=== PATIENT | male | born 1930 | race Caucasian/White ===

== ENCOUNTER 2018-09-29 15:07 | Observation (INO) | payer OTHER, MEDICARE ==
[2018-09-29] MEDS ORDERED: ALBUTEROL 2.5 MG/3 ML NEB SOL IH PRN (15:35)
[2018-09-29] MEDS ORDERED: INFLUENZA VACCINE (for 3y+) 0.5 ML DOSE IMVAC ONE (16:00)
[2018-09-29] MEDS ORDERED: NACHLORIDE 0.45% 1,000 ML IV SCH (16:00)
[2018-09-29] MEDS ORDERED: ENOXAPARIN 40 MG/0.4 ML SQ SCH (16:00)
[2018-09-29] MEDS ORDERED: ONDANSETRON 4 MG (ODT) TAB PO PRN (16:00)
[2018-09-29] MEDS ORDERED: PNEUMOCOCCAL VACCINE 0.5 ML IMVAC ONE (16:00)
[2018-09-29] MEDS ORDERED: ACETAMINOPHEN 325 MG TABLET PO PRN (16:00)
[2018-09-29] MEDS ORDERED: ONDANSETRON 4 MG/2 ML VIAL IV PRN (16:00)
[2018-09-29] MEDS ORDERED: LOPERAMIDE HCL 2 MG CAPSULE PO PRN (16:00)
[2018-09-29] MEDS ORDERED: DIPHENHYDRAMINE 25 MG TAB/CAP PO PRN (16:00)
[2018-09-29] MEDS ORDERED: POLYETHYL GLY 3350 17 GM/DOSE PO PRN (16:00)
[2018-09-29 16:08] VITALS: BMI 28.9
[2018-09-29 16:55] LABS: Arterial Blood Carboxyhemoglob 0.2 % (0-1.5); Blood Gas Oxyhemoglobin 91.6 % (94-97); Blood O2 Saturation 92.3 % (92-98.5)
--- NOTE | 2018-09-29 17:09 | EKG ---
Test Date: 2018-09-29 Test Time: 16:32:40 Carton Wrapper: RONY MEASUREMENT RESULTS: Intervals: Rate: 66 ME: 216 QRSD: 162 QT: 434 QTc: 454 [place]: P: 70 ME: 216 QRS: 95 T: 40 INTERPRETIVE STATEMENTS: Sinus rhythm with 1st degree AV block Right bundle branch block Abnormal ECG Compared to ECG 01/02/2017 08:24:06 Sinus tachycardia no longer present Electronically Signed On 09-29-18 17:08:48 BUILDING MAINTENANCE CUSTODIAN by Jun Rendon
[2018-09-29 17:17] LABS: Absolute Lymphocytes (CBC) 1.3 K/uL (0.7-4.9); Absolute Monocytes 0.5 K/uL (0.1-1.3); Absolute Neutrophil 3.9 K/uL (1.8-8.0); Basophils % 0.8 % (0-1.3); Eosinophils % 4.8 % (0-4.4); Hematocrit 39.9 % (39.6-49.0); MPV 8.5 fL (7.6-11.3); Monocytes % 8.6 % (3.3-12.3); RBC Red Blood Cell Count 4.14 M/uL (4.33-5.43)
[2018-09-29 17:20] LABS: Protime INR 0.96
[2018-09-29 17:59] LABS: Albumin 3.3 g/dL (3.4-5.0); Bilirubin Direct 0.1 mg/dL (0-0.2); Bilirubin Total 0.4 mg/dL (0.2-1.0); Magnesium 1.7 mg/dL (1.8-2.4); Phosphorus 2.7 mg/dL (2.5-4.9); Potassium 4.8 mmol/L (3.5-5.1); Protein, Total 6.8 g/dL (6.4-8.2); Thyroid Stimulating Hormone 1.48 uIU/mL (0.360-3.740)
--- NOTE | 2018-09-29 19:30 | RAD REPORT ---
EXAM DESCRIPTION: CT - Thorax Wo Con - 09/29/2018 7:10 pm CLINICAL HISTORY: sob COMPARISON: 2016 TECHNIQUE: Computed axial tomography of the chest was obtained. Contrast was not requested. All CT scans are performed using dose optimization technique as appropriate and may include automated exposure control or mA/KV adjustment according to patient size. FINDINGS: The evaluation of mediastinum, raad and vessels is limited secondary to lack of IV contras t administration. A calcified granuloma is present within the right lung. Left lung is essentially clear Calcified mediastinal and calcified hilar lymph nodes are present. . A pleural effusion is not present. A pericardial effusion is not seen. Coronary arterial calcificatio ns are noted. IMPRESSION: No acute abnormality displayed
--- NOTE | 2018-09-29 19:56 | RAD REPORT ---
EXAM DESCRIPTION: MRI - Brain Wo Cont - 09/29/2018 7:46 pm CLINICAL HISTORY: Anomia/ataxia COMPARISON: 2014 TECHNIQUE: Axial, sagittal, and coronal magnetic images of the brain were obtained. Contrast was not requested FINDINGS: Mild signal within periventricular, deep and subcortical white matter likely represent isc hemic changes secondary to small vessel disease. Diffusion-weighted/ADC mapping does not reveal evidence of acute infarction. The ventricles are normal caliber. An extra-axial fluid collection is not present Mild chronic opacification of mastoids is seen. Mild chronic sinusitis IMPRESSION: No acute abnormality displayed
--- NOTE | 2018-09-29 20:19 | RAD REPORT ---
EXAM DESCRIPTION: Deshawn Mcclelland (2 Views)09/29/2018 8:11 pm CLINICAL HISTORY: sob COMPARISON: July 2018 FINDINGS: The lungs appear clear of acute infiltrate. The heart is normal size IMPRESSION: No acute abnormalities displayed
[2018-09-29] MEDS: IPRATROPIUM BROM 0.5MG/2.5ML IH SCH (20:40)
[2018-09-29] MEDS: ALBUTEROL 2.5 MG/3 ML NEB SOL IH SCH (20:40)
[2018-09-29] MEDS ORDERED: FAMOTIDINE 20 MG TAB PO SCH (22:00)
[2018-09-30] MEDS: ALBUTEROL 2.5 MG/3 ML NEB SOL IH SCH ×3 (01:17→14:07)
[2018-09-30] MEDS: IPRATROPIUM BROM 0.5MG/2.5ML IH SCH ×3 (01:17→14:07)
[2018-09-30 06:16] LABS: Absolute Lymphocytes (CBC) 1.2 K/uL (0.7-4.9); Absolute Monocytes 0.4 K/uL (0.1-1.3); Absolute Neutrophil 2.5 K/uL (1.8-8.0); Basophils % 1.1 % (0-1.3); Eosinophils % 6.8 % (0-4.4); Hematocrit 39.3 % (39.6-49.0); Lymphocytes % 26.2 % (15.3-44.8); Monocytes % 9.8 % (3.3-12.3); RBC Red Blood Cell Count 4.19 M/uL (4.33-5.43)
[2018-09-30 06:37] LABS: Magnesium 1.7 mg/dL (1.8-2.4); Potassium 4.2 mmol/L (3.5-5.1)
[2018-09-30] MEDS: INSULIN 70/30 100 UNITS/ML SQ SCH ×2 (08:18→16:30)
[2018-09-30] MEDS ORDERED: DULOXETINE 20 MG CAP PO SCH (09:00)
[2018-09-30] MEDS ORDERED: LOSARTAN POTASSIUM 50 MG TABLET PO SCH (09:00)
[2018-09-30] MEDS ORDERED: METOPROLOL TAR 25 MG TAB PO SCH (09:00)
[2018-09-30] MEDS ORDERED: AMLODIPINE 10 MG TAB PO SCH (09:00)
[2018-09-30] MEDS ORDERED: ENOXAPARIN 30 MG/0.3 ML SQ SCH (09:00)
[2018-09-30] MEDS: FUROSEMIDE 20 MG/ 2ML VIAL IV SCH ×2 (09:49→17:53)
[2018-09-30] MEDS ORDERED: D50W 25 GM/50 ML SYRINGE IV PRN (12:26)
[2018-09-30] MEDS ORDERED: GLUCAGON 1 MG/VIAL IM PRN (12:26)
[2018-09-30] MEDS: INSULIN -REGULAR HUMAN 50 UNIT/0.5 ML ML SQ SCH ×2 (12:46→16:30)
--- NOTE | 2018-09-30 13:36 | ECHO ---
HEIGHT: 5 ft 5 in WEIGHT: 174 lb 0 oz DATE OF STUDY: 09/30/[address]: Armond Sommers MD 2-DIMENSIONAL: YES M.MODE: YES DOPPLER: YES COLOR FLOW: YES TDS: NO PORTABLE: NO DEFINITY: NO BUBBLE STUDY: NO DIAGNOSIS: SYNCOPE CARDIAC HISTORY: CATHERIZATION: NO SURGERY: NO PROSTHETIC VALVE: NO PACEMAKER: NO MEASUREMENTS (cm) DIASTOLIC (NORMALS) SYSTOLIC (NORMALS) IVSd 1.0 (0.6-1.2) LA Diam 3.3 (1.9-4.0) LVEF 53% LVIDd 4.7 (3.5-5.7) LVIDs 3.4 (2.0-3.5) %FS 27% LVPWd 0.9 (0.6-1.2) Ao Diam 2.6 (2.0-3.7) 2 DIMENSIONAL ASSESSMENT: RIGHT ATRIUM: NORMAL LEFT ATRIUM: NORMAL RIGHT VENTRICLE: NORMAL LEFT VENTRICLE: NORMAL TRICUSPID VALVE: NORMAL MITRAL VALVE: MITRAL ANNULAR CALCIFICATION PULMONIC VALVE: NORMAL AORTIC VALVE: NORMAL PERICARDIAL EFFUSION: NONE AORTIC ROOT: NORMAL LEFT VENTRICULAR WALL MOTION: NORMAL. DOPPLER/COLOR FLOW: IMPAIRED LEFT VENTRICUALR RELAXATION. MILD MITRAL AND TRICUSPID REGURGITATION. NORMAL RIGHT VENTRICULAR SYSTOLIC PRESSURE. COMMENTS: NORMAL LEFT VENTRICUALR EJECTION FRACTION. MITRAL ANNULAR CALCIFICATION. IMPAIRED LEFT VENTRICULAR RELAXATION. MILD MITRAL AND TRICUSPID REGURGITATION. TECHNOLOGIST: DIANE FLAHERTY
[2018-09-30 17:11] VITALS: O2SAT 98
[2018-09-30 17:23] VITALS: TEMP 97.9
[2018-09-30 17:56] VITALS: BP 120/80
--- NOTE | 2018-09-30 20:16 | P.DS ---
Admission Date: 09/29/18 Discharge Date: 09/30/18 Disposition: ROUTINE DISCHARGE Discharge Condition: FAIR - Problems (1) Dyspnea Status: Acute Qualifiers: Dyspnea type: shortness of breath Qualified Code(s): R06.02 - Shortness of breath; R06.00 - Dyspnea, unspecified; R06.01 - Orthopnea (2) Anomia Status: Acute Hospital Course: MR. GORDON HAS DYSPNEA AT REST, HE HAS DIFFICULT TIME GETTING WORDS OUT. HE STUMBLE ALSO. HE IS A DECONDITIONED GM WITH MANY MEDICAL ISSUES, DM, HTN, CKD -3, NEUROPATHY, OBESITY, CAD, BLADDER CANCER HISTORY AND ON MRI HE SHOWS NO SIGNS OF STROKE. CT SCAN OF CHEST IS NEGATIVE. HIS ANOMIA CAN BE RELATED TO ATYPICAL SEIZURES. I ORDERED EEG. REPORT AND NEUROLOGISTS ARE NOT AVAILABLE AT THIS [facility]. HE IS STABLE TO BE DISCHARGED HOME. Vital Signs/Physical Exam: Temp Pulse Resp BP Pulse Ox 97.9 F 68 17 120/80 98 09/30/18 16:00 09/30/18 17:53 09/30/18 16:00 09/30/18 17:53 09/30/18 16:00 General: Alert, In no apparent distress, Obese HEENT: Atraumatic, PERRLA, EOMI Neck: Supple, JVD not distended Respiratory: Clear to auscultation bilaterally, Normal air movement Cardiovascular: Regular rate/rhythm, Normal S1 S2 Gastrointestinal: Normal bowel sounds, No tenderness Musculoskeletal: No tenderness Integumentary: No rashes Neurological: Normal speech, Normal tone, Normal affect Lymphatics: No axilla or inguinal lymphadenopathy Laboratory Data at Discharge: WBC 4.5 K/uL (4.3-10.9) D 09/30/18 05:50 Hgb 13.2 g/dL (13.6-17.9) L 09/30/18 05:50 Hct 39.3 % (39.6-49.0) L 09/30/18 05:50 Plt Count 217 K/uL (152-406) 09/30/18 05:50 PT 11.3 SECONDS (9.5-12.5) 09/29/18 16:52 INR 0.96 09/29/18 16:52 APTT 27.3 SECONDS (24.3-36.9) 09/29/18 16:52 Sodium 138 mmol/L (136-145) 09/30/18 05:50 Potassium 4.2 mmol/L (3.5-5.1) 09/30/18 05:50 BUN 44 mg/dL (7-18) H 09/30/18 05:50 Creatinine 1.73 mg/dL (0.55-1.3) H 09/30/18 05:50 Glucose 216 mg/dL (74-106) H 09/30/18 05:50 Phosphorus 2.7 mg/dL (2.5-4.9) 09/29/18 16:52 Magnesium 1.7 mg/dL (1.8-2.4) L 09/30/18 05:50 Total Bilirubin 0.4 mg/dL (0.2-1.0) 09/29/18 16:52 AST 23 U/L (15-37) 09/29/18 16:52 ALT 27 U/L (12-78) 09/29/18 16:52 Alkaline Phosphatase 84 U/L (45-117) 09/29/18 16:52 Troponin I < 0.02 ng/mL (0.0-0.045) 09/30/18 15:17 Home Medications: Alpha Lipoic Acid 600 mg PO DAILY 09/29/18 Amlodipine [Norvasc*] 10 mg PO DAILY 09/29/18 Aspirin [Aspirin EC 81 MG] 81 mg PO BEDTIME 09/29/18 Cholecalciferol (Vitamin D3) [Vitamin D3] 1,000 iu PO BID 09/29/18 Famotidine [Pepcid*] 20 mg PO BID 09/29/18 Gabapentin [Neurontin*] 100 mg PO BEDTIME 09/29/18 Insulin 70/30 NPH/Reg Human [Novolin 70/30*] 20 units SQ BID 09/29/18 Losartan Potassium [Cozaar*] 50 mg PO DAILY 09/29/18 Metoprolol Tartrate [Lopressor*] 12.5 mg PO DAILY 09/29/18 Furosemide 40 mg PO DAILY #90 tablet 09/30/18 New Medications: Furosemide 40 mg PO DAILY #90 tablet Followup: Armond Sommers MD [Primary Care Provider] - 10/08/18 (Follow up before 12:00)
[2018-09-30] MEDS ORDERED: GABAPENTIN 100 MG CAP PO SCH (21:00)
[2018-09-30] MEDS ORDERED: ASPIRIN EC 81 MG TAB PO SCH (21:00)
[2018-10-01] MEDS ORDERED: LOSARTAN 50 MG TABLET PO SCH (09:00)
[2018-10-01] MEDS ORDERED: METOPROLOL SUCC 50 MG PO SCH (09:00)
[2018-10-01] MEDS ORDERED: AMLODIPINE 10 MG TABLET PO SCH (09:00)
[2018-10-03 15:40] LABS: Vitamin D 1,25-Dihydroxy Total 26 pg/mL (18-72); Vitamin D,1,25-OH2, D2 <8 pg/mL
== END 2018-09-30 18:45 | disposition home or self-care (01) ==
LOC: 2ND 15:14
PROVIDERS: ADMIT Internal Medicine; ATTEND Internal Medicine
DX: R06.00 Dyspnea, unspecified (principal); R48.8 Other symbolic dysfunctions; I12.9 Hypertensive chronic kidney disease with stage 1 through stage 4 chronic kidney disease, or unspecified chronic kidney disease; E11.22 Type 2 diabetes mellitus with diabetic chronic kidney disease; N18.3 Chronic kidney disease, stage 3 (moderate); I25.10 Atherosclerotic heart disease of native coronary artery without angina pectoris; E66.9 Obesity, unspecified; Z68.29 Body mass index [BMI] 29.0-29.9, adult; Z85.51 Personal history of malignant neoplasm of bladder
CPT/HCPCS: 36415 ×2; 70551; 71046; 71250; 80048 ×2; 80076; 82607; 82652; 82805; 82962 ×6; 83735 ×2; 83880; 84100; 84238; 84403; 84443; 84484 ×2; 85025 ×2; 85379; 85610; 85730; 87040; 93005; 93306; 94640; 94760 ×4; 95819; G0378 ×2; J1650 ×2; J1940 ×2

== ENCOUNTER 2018-10-25 10:17 | Observation (INO) | payer OTHER, MEDICARE ==
--- OUTSIDE RECORDS SUMMARY | 2018-10-25 10:49 | XMS REPORT | Clinical Summary ---
:1930 Author Organization [facility] Address [address] [place] [address] Care Team Providers Name Role Phone System, Provider Not In MD Primary Care Provider Unavailable Allergies Active Allergy Reactions Severity Noted Date Comments Hydrocodone Medications Medication Sig Dispensed Refills Start Date End Date Status losartan (COZAAR) 100 Take 50 mg by 0 Active MG tablet mouth daily. DULoxetine (CYMBALTA) Take 60 mg by 0 Active 60 MG capsule mouth daily. cholecalciferol, Take 1,000 0 Active vitamin D3, (VITAMIN Units by mouth D3) 1,000 unit tablet daily. METOPROLOL TARTRATE Take 12.5 mg by 0 Active 12.5 MG PO SPLIT mouth every TABLET (LOPRESSOR) evening. omeprazole (PriLOSEC) Take 20 mg by 0 Active 20 MG capsule mouth daily. amLODIPine (NORVASC) Take 10 mg by 0 Active 10 mg tablet mouth daily. FOLIC Take by mouth. 0 Active ACID/MULTIVIT-MIN/LUTE IN (CENTRUM SILVER ORAL) linaclotide (LINZESS) Take 290 mcg by 0 Active 290 mcg capsule mouth 2 (two) times a week. Twice a week aspirin (ECOTRIN) 81 Take 81 mg by 0 Active MG enteric coated mouth daily. tablet gabapentin (NEURONTIN) Take 100 mg by 0 Active 100 mg capsule mouth 2 (two) times a day. INSULIN NPH HUM/REG Inject 20 Units 0 Active INSULIN HM (NOVOLIN under the skin 70/30 SUBQ) 2 (two) times a day. FOLIC Take by mouth. 0 Active ACID/MULTIVIT-MIN/LUTE IN (CENTRUM SILVER ORAL) TURMERIC (CURCUMIN 1,000 mg every 0 Active MISC) evening. rosuvastatin (CRESTOR) Take 1 tablet 90 tablet 3 08/20/2017 08/20/2018 20 MG tablet (20 mg total) by mouth daily. Active Problems Problem Noted Date Abnormal nuclear stress test 08/13/2017 Overview: Added automatically from request for surgery [id number] Atrial fibrillation 10/08/2016 Dizziness 10/08/2016 Dyspnea on exertion 10/08/2016 Abnormal electrocardiography 10/08/2016 Essential hypertension 10/08/2016 Hyperlipidemia 10/08/2016 Premature atrial contraction 10/08/2016 Primary malignant neoplasm of bladder 10/08/2016 Right fascicular block 10/08/2016 Atrial premature complexes 10/08/2016 Social History Tobacco Use Types Packs/Day Years Used Date Former Smoker Smokeless Tobacco: Never Used Alcohol Use Drinks/Week oz/Week Comments Yes Sex Assigned at Date Recorded Not on file Job Start Date Occupation Industry Not on file Not on file Not on file Travel History Travel Start Travel End No recent travel history available. Last Filed Vital Signs Not on file Plan of Treatment Health Maintenance Due Date Last Done Comments SHINGLES VACCINES (#1) 1979 65+ PNEUMOCOCCAL VACCINE (1 of 2 - PCV13) 1994 PNEUMOCOCCAL POLYSACCHARIDE VACCINE AGE 65 AND OVER 1994 INFLUENZA VACCINE 03/24/2018 Results Not on fileafter 10/24/2017 Insurance Payer Benefit Plan / Group Subscriber ID Type Phone Address MEDICARE MEDICARE PART A AND B xxxxxxxxxx Medicare [place], [place] AARP AARP SUPPLEMENT xxxxxxxxx-xx Commercial Advance Directives Patient has advance care planning documents on file. For more information, please contact:[place] [address]
[2018-10-25] MEDS ORDERED: ACETAMINOPHEN 325 MG TABLET PO PRN (12:00)
[2018-10-25] MEDS ORDERED: LOPERAMIDE HCL 2 MG CAPSULE PO PRN (12:00)
[2018-10-25] MEDS ORDERED: ONDANSETRON 4 MG/2 ML VIAL IV PRN (12:00)
[2018-10-25] MEDS ORDERED: DIPHENHYDRAMINE 25 MG TAB/CAP PO PRN (12:00)
[2018-10-25] MEDS ORDERED: POLYETHYL GLY 3350 17 GM/DOSE PO PRN (12:00)
[2018-10-25] MEDS ORDERED: NACHLORIDE 0.45% 1,000 ML IV SCH (12:00)
[2018-10-25] MEDS ORDERED: ONDANSETRON 4 MG (ODT) TAB PO PRN (12:00)
[2018-10-25 12:13] LABS: Absolute Lymphocytes (CBC) 1.2 K/uL (0.7-4.9); Absolute Monocytes 0.5 K/uL (0.1-1.3); Absolute Neutrophil 2.9 K/uL (1.8-8.0); Basophils % 0.9 % (0-1.3); Eosinophils % 10.7 % (0-4.4); Hematocrit 38.5 % (39.6-49.0); Lymphocytes % 23.6 % (15.3-44.8); MPV 8.1 fL (7.6-11.3); RBC Red Blood Cell Count 4.03 M/uL (4.33-5.43)
[2018-10-25 12:33] VITALS: BMI 28.6
[2018-10-25] MEDS ORDERED: ALBUTEROL INHALER 60 PUFF/8 GM IH PRN (12:47)
[2018-10-25 12:49] LABS: Protime INR 0.99
--- NOTE | 2018-10-25 13:07 | RAD REPORT ---
EXAM DESCRIPTION: Deshawn Mcclelland (2 Views)10/25/2018 1:01 pm CLINICAL HISTORY: Cough COMPARISON: September 29, 2018 FINDINGS: The lungs appear clear of acute infiltrate. The heart is normal size IMPRESSION: No acute abnormalities displayed
--- NOTE | 2018-10-25 13:42 | EKG ---
Test Date: 2018-10-25 Test Time: 11:36:21 Hose Tester: SINA MEASUREMENT RESULTS: Intervals: Rate: 75 SD: 252 QRSD: 162 QT: 434 QTc: 484 [place]: P: SD: 252 QRS: 49 T: 5 INTERPRETIVE STATEMENTS: Sinus rhythm with 1st degree AV block Right bundle branch block Inferior infarct, age undetermined Abnormal ECG Compared to ECG 09/29/2018 16:32:40 Myocardial infarct finding now present Electronically Signed On 10-25-18 13:37:46 CRAB FISHERMAN by Jun Rendon
[2018-10-25 13:54] LABS: ALT/SGPT 38 U/L (12-78); AST/SGOT 35 U/L (15-37); Albumin 3.5 g/dL (3.4-5.0); Alkaline Phosphatase 88 U/L (45-117); BUN Blood Urea Nitrogen 63 mg/dL (7-18); Bicarbonate 23 mmol/L (21-32); Bilirubin Direct < 0.1 mg/dL (0-0.2); Bilirubin Total 0.4 mg/dL (0.2-1.0); Glucose Level 139 mg/dL (74-106); Magnesium 1.9 mg/dL (1.8-2.4); Phosphorus 3.2 mg/dL (2.5-4.9); Potassium 4.4 mmol/L (3.5-5.1); Protein, Total 7.4 g/dL (6.4-8.2); Sodium Level 139 mmol/L (136-145)
--- NOTE | 2018-10-25 15:53 | RAD REPORT ---
EXAM DESCRIPTION: CT - Abdomen Pelvis Wo Contrast - 10/25/2018 3:16 pm CLINICAL HISTORY: Abdominal pain. AMS, unsteady gait COMPARISON: Abdomen Pelvis Wo Contrast dated 01/01/2017; Abdomen Pelvis Wo Contrast dated 04/07/20 16 TECHNIQUE: CT imaging of the abdomen and pelvis was performed without contrast. Solid organ, bowel a nd vascular assessment is limited due to lack of IV and oral contrast. All CT scans are performed using dose optimization technique as appropriate and may include automated exposure control or mA/KV adjustment according to patient size. FINDINGS: The lower lung blanchard are clear. The liver, spleen, pancreas, adrenal glands and kidneys are within normal limits for a limited non-co ntrast examination.Bilateral renal cysts are present. No bowel obstruction, free air, free fluid or abscess. 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 Small parastomal hernia is present containing fat and small bowel without obstruction. Diverticulosis is present involving the sigmoid colon with trace peridiverticular fat stranding in th e anterior left lower quadrant likely representing mild acute diverticulitis. The osseous structures are within normal limits. IMPRESSION: Mild acute left lower quadrant diverticulitis without abscess. A limited non-contrast examination was performed as detailed.
--- NOTE | 2018-10-25 16:18 | RAD REPORT ---
EXAM DESCRIPTION: MRI - Brain Wo Cont - 10/25/2018 3:57 pm CLINICAL HISTORY: AMS, unsteady gait Drowsiness, headache COMPARISON: Brain Wo Cont dated 09/29/2018; MRA HEAD W O CONTRAST dated 02/17/2015; MRI BRAIN WITHOUT C ONTRAST dated 08/10/2013 TECHNIQUE: Multi-sequence, multiplanar MR imaging of the brain was performed without contrast. FINDINGS: No intracranial hemorrhage, hydrocephalus or extra-axial fluid collections.Mild to moderat e generalized brain atrophy is present. Moderate T2 and FLAIR hyperintensity is seen in the periventr icular and deep white matter likely representing chronic microvascular ischemic changes. No edema or shift of midline structures. No findings to suspect brain mass. DWI is negative for acute CVA. Midline structures are normally formed. Mild mucosal thickening in both maxillary antra seen. Trace fluid is seen in both mastoid air cells. IMPRESSION: No significant change is seen since the comparative study. Negative for acute CVA or other acute intracranial process. Mild paranasal sinus and mastoid fluid.
[2018-10-25] MEDS: METRONIDAZOLE 500mg IVPB 500 MG/100 ML BAG IV SCH (17:51)
[2018-10-25] MEDS: METOPROLOL TAR 25 MG TAB PO SCH ×2 (17:54→21:11)
[2018-10-25] MEDS: INSULIN 70/30 100 UNITS/ML SQ SCH (17:54)
[2018-10-25] MEDS ORDERED: FAMOTIDINE 20 MG TAB PO SCH (18:00)
[2018-10-25] MEDS ORDERED: ASPIRIN 81 MG CHEWABLE TABLET PO SCH (18:00)
[2018-10-25] MEDS ORDERED: VITAMIN D 1000 UNIT TAB PO SCH (18:00)
[2018-10-25] MEDS ORDERED: GABAPENTIN 100 MG CAP PO SCH (18:00)
[2018-10-25] MEDS ORDERED: GLUCAGON 1 MG/VIAL IM PRN (20:28)
[2018-10-25] MEDS ORDERED: D50W 25 GM/50 ML SYRINGE IV PRN (20:28)
[2018-10-25] MEDS: Ciprofloxacin 200mg IV 200 MG/100 ML IV.SOLN. IV SCH (20:49)
[2018-10-25] MEDS: INSULIN -REGULAR HUMAN 50 UNIT/0.5 ML ML SQ SCH (21:00)
--- NOTE | 2018-10-25 21:01 | RAD REPORT ---
EXAM DESCRIPTION: RAD - Shoulder Right 2 View - 10/25/2018 8:54 pm CLINICAL HISTORY: right upper arm pain History of fall, shoulder pain COMPARISON: Shoulder Right 2 View dated 09/29/2017 FINDINGS: Glenohumeral and AC joint arthritic changes are present. No acute fracture or dislocation is identified.
[2018-10-26] MEDS: METRONIDAZOLE 500mg IVPB 500 MG/100 ML BAG IV SCH ×2 (00:52→06:39)
[2018-10-26] MEDS ORDERED: ALPHA LIPOIC ACID 600 MG PO SCH (06:00)
[2018-10-26] MEDS ORDERED: [UNRECOGNIZED DRUG - OTHER] PO SCH (06:00)
[2018-10-26] MEDS ORDERED: LASIX 40 MG PO SCH (06:00)
[2018-10-26] MEDS ORDERED: FLAX PO SCH (06:00)
[2018-10-26] MEDS ORDERED: FISH OIL PO SCH (06:00)
[2018-10-26] MEDS ORDERED: HOME MED 1 EA UNK (Linaclotide [Linzess] 290 MCG) PO SCH (06:00)
[2018-10-26] MEDS ORDERED: BORAGE PO SCH (06:00)
[2018-10-26] MEDS ORDERED: VITAMIN B COMPLEX 1 CAP PO SCH (06:00)
[2018-10-26] MEDS ORDERED: FUROSEMIDE 40 MG TABLET PO SCH (06:00)
[2018-10-26] MEDS: INSULIN 70/30 100 UNITS/ML SQ SCH (06:00)
[2018-10-26 06:10] LABS: Absolute Monocytes 0.4 K/uL (0.1-1.3); Basophils % 0.8 % (0-1.3); Eosinophils % 6.4 % (0-4.4); Lymphocytes % 14.7 % (15.3-44.8); MPV 8.2 fL (7.6-11.3); Monocytes % 6.1 % (3.3-12.3); RBC Red Blood Cell Count 4.03 M/uL (4.33-5.43)
[2018-10-26 06:31] LABS: Potassium 3.8 mmol/L (3.5-5.1)
[2018-10-26] MEDS: INSULIN -REGULAR HUMAN 50 UNIT/0.5 ML ML SQ SCH (07:30)
[2018-10-26] MEDS: Ciprofloxacin 200mg IV 200 MG/100 ML IV.SOLN. IV SCH (07:53)
[2018-10-26 08:15] LABS: Urine Appearance CLOUDY; Urine Bilirubin NEGATIVE (NEG); Urine Blood TRACE (NEG); Urine Color YELLOW; Urine Glucose NEGATIVE (NEG); Urine Protein 1+ (NEG); Urine Urobilinogen 0.2 mg/dL (0.2-1.0); Urine pH 7.5 (5.0-7.0)
[2018-10-26 08:19] LABS: Urine Microscopic Reflex ORDER UMIC
[2018-10-26 08:28] LABS: Urine Bacteria 20-50 /HPF (NONE SEEN); Urine RBC <5 /HPF (NONE SEEN)
[2018-10-26 08:29] LABS: Urine Amorphous Sediment 1+ /HPF (NONE SEEN); Urine Culture Reflex Order REFLEXED
[2018-10-26] MEDS ORDERED: ENOXAPARIN 40 MG/0.4 ML SQ SCH (09:00)
[2018-10-26] MEDS ORDERED: NORVASC 10 MG PO SCH (09:00)
[2018-10-26] MEDS ORDERED: AMLODIPINE 10 MG TAB PO SCH (09:00)
[2018-10-26] MEDS ORDERED: COZAAR 50 MG PO SCH (09:00)
[2018-10-26] MEDS ORDERED: LOSARTAN POTASSIUM 50 MG TABLET PO SCH (09:00)
[2018-10-26 09:24] LABS: UR MICROALBUMIN 11.7 mg/dL (< 1.9)
[2018-10-26 09:25] VITALS: BP 111/70; TEMP 97.9
[2018-10-26 09:51] VITALS: O2SAT 99
--- NOTE | 2018-10-26 09:58 | P.DS ---
Admission Date: 10/25/18 Discharge Date: 10/26/18 Disposition: ROUTINE DISCHARGE Discharge Condition: FAIR Hospital Course: MR. GORDON IS FEELING A LOT BETTER WITH TWO ABX GIVEN FOR DIVERTICULITIS. HE IS ABLE TO AMBULATE. HE IS STABLE FOR DISCHARGE FOR FU IN OFFICE. Vital Signs/Physical Exam: Temp Pulse Resp BP Pulse Ox 97.9 F 84 19 111/70 99 10/26/18 08:00 10/26/18 08:00 10/26/18 08:00 10/26/18 08:00 10/26/18 08:00 Laboratory Data at Discharge: WBC 6.9 K/uL (4.3-10.9) D 10/26/18 05:35 Hgb 12.7 g/dL (13.6-17.9) L 10/26/18 05:35 Hct 38.0 % (39.6-49.0) L 10/26/18 05:35 Plt Count 239 K/uL (152-406) 10/26/18 05:35 PT 11.7 SECONDS (9.5-12.5) 10/25/18 11:54 INR 0.99 10/25/18 11:54 APTT 27.5 SECONDS (24.3-36.9) 10/25/18 11:54 Sodium 144 mmol/L (136-145) 10/26/18 05:35 Potassium 3.8 mmol/L (3.5-5.1) 10/26/18 05:35 BUN 62 mg/dL (7-18) H 10/26/18 05:35 Creatinine 2.11 mg/dL (0.55-1.3) H 10/26/18 05:35 Glucose 108 mg/dL (74-106) H 10/26/18 05:35 Phosphorus 3.2 mg/dL (2.5-4.9) 10/25/18 11:54 Magnesium 2.0 mg/dL (1.8-2.4) 10/26/18 05:35 Total Bilirubin 0.4 mg/dL (0.2-1.0) 10/25/18 11:54 AST 35 U/L (15-37) 10/25/18 11:54 ALT 38 U/L (12-78) 10/25/18 11:54 Alkaline Phosphatase 88 U/L (45-117) 10/25/18 11:54 Home Medications: Albuterol Inhaler [Ventolin Inhaler*] 2 puff IH Q6H PRN 10/25/18 Alpha Lipoic Acid 600 mg PO [id number] 10/25/18 Amlodipine [Norvasc*] 10 mg PO DAILY 10/25/18 Aspirin [Jorge Chewable Aspirin] 81 mg PO DAILY 6PM 10/25/18 Cholecalciferol (Vitamin D3) [Vitamin D3] 2,000 unit PO DAILY 6PM 10/25/18 Famotidine [Pepcid] 20 mg PO BID 6AM 6PM 10/25/18 Fish Oil/Borage/Flax/Om3,6,9#1 [[place] 3-6-9 1,200 mg Softgel] 1 cap PO [id number] 10/25/18 Furosemide 40 mg PO [id number] 10/25/18 Gabapentin 100 mg PO DAILY 6PM 10/25/18 Insulin NPH Hum/Reg Insulin Hm [Novolin 70-30 Flexpen] 20 unit SQ BID 6AM 6PM Linaclotide [Linzess] 290 mcg PO [id number] 10/25/18 Losartan Potassium [Cozaar*] 50 mg PO DAILY 10/25/18 Metoprolol Tartrate [Lopressor*] 12.5 mg PO DAILY 6PM 10/25/18 Vitamin B Complex [B Complex] 1 each PO [id number] 10/25/18 Ciprofloxacin HCl [Cipro 250 MG Tablet*] 250 mg PO BID #20 tab 10/26/18 metroNIDAZOLE [Flagyl] 250 mg PO Q8H #21 tablet 10/26/18 New Medications: Ciprofloxacin HCl [Cipro 250 MG Tablet*] 250 mg PO BID #20 tab metroNIDAZOLE [Flagyl] 250 mg PO Q8H #21 tablet
[2018-10-26] MEDS ORDERED: VITAMIN D 2000 UNIT PO SCH (18:00)
[2018-10-28 16:40] LABS: Vitamin D 1,25-Dihydroxy Total 26 pg/mL (18-72); Vitamin D,1,25-OH2, D2 <8 pg/mL
== END 2018-10-26 11:03 | disposition home or self-care (01) ==
LOC: 2ND 10:47
PROVIDERS: ADMIT Internal Medicine; ATTEND Internal Medicine
DX: K57.92 Diverticulitis of intestine, part unspecified, without perforation or abscess without bleeding (principal); E11.9 Type 2 diabetes mellitus without complications; N40.0 Benign prostatic hyperplasia without lower urinary tract symptoms; Z85.51 Personal history of malignant neoplasm of bladder; J44.9 Chronic obstructive pulmonary disease, unspecified; I12.9 Hypertensive chronic kidney disease with stage 1 through stage 4 chronic kidney disease, or unspecified chronic kidney disease; E11.22 Type 2 diabetes mellitus with diabetic chronic kidney disease; N18.3 Chronic kidney disease, stage 3 (moderate)
CPT/HCPCS: 93005; 87040 ×2; 87088; 85025 ×2; 87086; 80048 ×2; 36415 ×2; 83735 ×2; 84100; 85610; 82962 ×2; 80076; 85730; 82652; 84443; 87077; 87186; 83036; 82570; 82607; 84145; 82043; 74176; 71046; 73030; 70551; 94760 ×2; J1650; J0744 ×2; G0378 ×2; 81003; 81015